=== PATIENT | male | born 1960 | race African-American/Black ===

== ENCOUNTER 2018-06-15 19:10 | Emergency (ER) | payer SELFPAY ==
[~2018-06-15] VITALS: Ht 182.9 cm; Wt 120.5 kg
[~2018-06-15 19:10] MED LIST: AMLO-512 PO; ASPI81TA42 PO; ATOR10TA84 PO; CARV6 PO; FURO-151 PO; LORA10TA7 PO; LOSA50TA25 PO; METF-960 PO; OMEP20CA10 PO
[2018-06-15] MEDS ORDERED: NITROGLYCERIN 2% (1 GM=INCH) PACKET TP ONE (20:00)
[2018-06-15] MEDS ORDERED: CloNIDine HCL 0.1 MG TABLET PO ONE (20:00)
[2018-06-15 20:07] LABS: APPEARANCE,URINE CLEAR (CLEAR); BILIRUBIN,URINE NEGATIVE (NEGATIVE); GLUCOSE, URINE (UA) NEGATIVE (NEGATIVE); KETONES,URINE NEGATIVE (NEGATIVE); LEUKOCYTE ESTERASE ,URINE NEGATIVE (NEGATIVE); NITRATE,URINE NEGATIVE (NEGATIVE); OCCULT BLOOD,URINE NEGATIVE (NEGATIVE); PROTEIN,URINE NEGATIVE (NEGATIVE); UROBILINOGEN,URINE 0.2 mg/dL (<=1.0)
[2018-06-15 20:11] LABS: AMPHET/METH SCREEN,URINE NEGATIVE (NEGATIVE); BARBITURATE SCREEN, URINE NEGATIVE (NEGATIVE); BENZODIAZEPINES SCREEN,URINE NEGATIVE (NEGATIVE); CANNABINOID SCREEN,URINE NEGATIVE (NEGATIVE); COCAINE SCREEN,URINE NEGATIVE (NEGATIVE); METHADONE SCREEN, URINE NEGATIVE (NEGATIVE); OPIATE SCREEN,URINE NEGATIVE (NEGATIVE)
[2018-06-15 20:13] LABS: PHENCYCLIDINE SCREEN,URINE NEGATIVE (NEGATIVE)
[2018-06-15 20:21] LABS: BASOPHILS % (AUTO) 1.3 % (0.0-2.0); EOSINOPHILS % (AUTO) 2.8 % (1.0-6.0); HEMATOCRIT 45.7 % (41-53); HEMOGLOBIN 15.9 g/dL (13.5-17.5); LYMPHOCYTES # (AUTO) 1.3 K/uL (1.0-4.8); LYMPHOCYTES % (AUTO) 32.6 % (22.0-44.0); MEAN CORPUSCULAR HGB CONC 34.7 G/dL (31.0-37.0); MEAN CORPUSCULAR VOLUME 89 fL (80-100); MONOCYTES # (AUTO) 0.2 K/uL (0.1-1.0); MONOCYTES % (AUTO) 6.3 % (2.0-9.0); NEUTROPHILS # (AUTO) 2.2 K/uL (1.8-7.7); PLATELET COUNT (AUTO) 214 K/uL (150-450); RED BLOOD CELL COUNT(AUTO) 5.12 MIL/uL (4.50-5.90)
[2018-06-15 20:26] LABS: ANION GAP 12 mmol/L (8-16); CALCIUM, TOTAL 9.1 mg/dL (8.8-10.5); CARBON DIOXIDE 25 mmol/L (22-29); CHLORIDE 101 mmol/L (98-107); CREATININE 1.07 mg/dL (0.60-1.30); GLOMERULAR FILTR. RATE CALC > 60 mL/min (>60); GLUCOSE,RANDOM 110 mg/dL (70-110); POTASSIUM 3.1 mmol/L (3.5-5.1); SODIUM SERUM 138 mmol/L (136-145); UREA NITROGEN, BLOOD 7 mg/dL (7-18)
[2018-06-15 20:32] LABS: PROTHROMBIN TIME 10.9 SEC (9.4-11.6)
[2018-06-15 20:39] LABS: B-TYPE NATRIURETIC PEPTIDE 210 pg/mL (0-100)
[2018-06-15 20:52] LABS: ALANINE AMINOTRANSFERASE 37 U/L (12-78); ALBUMIN 3.8 g/dL (3.4-5.0); ALKALINE PHOSPHATASE 83 U/L (46-116); ASPARTATE AMINOTRANSFERASE 21 U/L (15-37); BILIRUBIN,TOTAL 0.5 mg/dL (0.1-1.0); CREATINE KINASE MB 1.3 ng/mL (0-5); CREATINE KINASE, TOTAL 152 U/L (39-308)
[2018-06-15] MEDS ORDERED: AmLODIPine BESYLATE 5 MG TABLET PO ONE (21:15)
[2018-06-15] MEDS ORDERED: FUROSEMIDE 20 MG TABLET PO ONE (21:15)
[2018-06-15 22:23] VITALS: BP 169/91
== END 2018-06-15 22:27 | disposition home or self-care (01) ==
LOC: EMS 19:11
DX: F10.129 Alcohol abuse with intoxication, unspecified (principal); I11.0 Hypertensive heart disease with heart failure; I50.9 Heart failure, unspecified; K21.9 Gastro-esophageal reflux disease without esophagitis; E78.00 Pure hypercholesterolemia, unspecified; E11.9 Type 2 diabetes mellitus without complications; Y90.6 Blood alcohol level of 120-199 mg/100 ml; Z88.5 Allergy status to narcotic agent; Z88.6 Allergy status to analgesic agent; Z88.8 Allergy status to other drugs, medicaments and biological substances; Z79.82 Long term (current) use of aspirin; Z79.84 Long term (current) use of oral hypoglycemic drugs
CPT/HCPCS: 36415; 71045; 80053; 80307; 81003; 82550; 82553; 82948; 83880; 84484; 85025; 85610; 85730; 93005; 99285; G0480

== ENCOUNTER 2019-04-26 19:59 | Emergency (ER) | payer SELFPAY ==
[~2019-04-26] VITALS: Ht 180.3 cm; Wt 109.0 kg
[~2019-04-26 19:59] MED LIST changes: -AMLO-512 PO; +AMLO10TA7 PO; +ASPI81TA40 PO; -ASPI81TA42 PO; -LOSA50TA25 PO; +LOSA50TA64 PO; +OMEP-50 PO; -OMEP20CA10 PO
[2019-04-26 21:14] LABS: EOSINOPHILS % (AUTO) 2.4 % (1.0-6.0); HEMATOCRIT 42.3 % (41-53); HEMOGLOBIN 14.2 g/dL (13.5-17.5); LYMPHOCYTES # (AUTO) 1.6 K/uL (1.0-4.8); LYMPHOCYTES % (AUTO) 40.6 % (22.0-44.0); MEAN CORPUSCULAR HEMOGLOBIN 30.9 pg (26.0-34.0); MEAN CORPUSCULAR HGB CONC 33.7 G/dL (31.0-37.0); MEAN CORPUSCULAR VOLUME 92 fL (80-100); MONOCYTES # (AUTO) 0.3 K/uL (0.1-1.0); MONOCYTES % (AUTO) 6.8 % (2.0-9.0); NEUTROPHILS % (AUTO) 49.2 % (40.0-70.0); PLATELET COUNT (AUTO) 222 K/uL (150-450); RED BLOOD CELL COUNT(AUTO) 4.62 MIL/uL (4.50-5.90)
[2019-04-26 21:23] LABS: ANION GAP 12 mmol/L (8-16); CALCIUM, TOTAL 8.9 mg/dL (8.8-10.5); CARBON DIOXIDE 25 mmol/L (22-29); CHLORIDE 104 mmol/L (98-107); CREATININE 1.13 mg/dL (0.60-1.30); GLOMERULAR FILTR. RATE CALC > 60 mL/min (>60); GLUCOSE,RANDOM 87 mg/dL (70-110); POTASSIUM 3.3 mmol/L (3.5-5.1); SODIUM SERUM 141 mmol/L (136-145); UREA NITROGEN, BLOOD 9 mg/dL (7-18)
[2019-04-26 21:29] LABS: ALANINE AMINOTRANSFERASE 32 U/L (12-78); ALBUMIN 3.9 g/dL (3.4-5.0); ALKALINE PHOSPHATASE 77 U/L (46-116); ASPARTATE AMINOTRANSFERASE 21 U/L (15-37); BILIRUBIN,TOTAL 0.4 mg/dL (0.1-1.0); TOTAL PROTEIN, SERUM 7.9 g/dL (6.4-8.2)
[2019-04-26] MEDS ORDERED: AmLODIPine BESYLATE 5 MG TABLET PO ONE (21:30)
[2019-04-26 21:31] LABS: AMMONIA 25 umol/L (11-32); TROPONIN I < 0.02 ng/mL (0.00-0.05)
[2019-04-26 22:44] VITALS: BP 179/102
== END 2019-04-26 22:40 | disposition home or self-care (01) ==
LOC: EMS 20:02
DX: F10.129 Alcohol abuse with intoxication, unspecified (principal); E87.6 Hypokalemia; I11.0 Hypertensive heart disease with heart failure; I50.9 Heart failure, unspecified; E11.9 Type 2 diabetes mellitus without complications; E78.00 Pure hypercholesterolemia, unspecified; K21.9 Gastro-esophageal reflux disease without esophagitis; Z88.5 Allergy status to narcotic agent; Z88.6 Allergy status to analgesic agent; Z79.82 Long term (current) use of aspirin; Z79.84 Long term (current) use of oral hypoglycemic drugs; Z79.899 Other long term (current) drug therapy; Y90.7 Blood alcohol level of 200-239 mg/100 ml
CPT/HCPCS: 36415; 80053; 82140; 84484; 85025; 99283; G0480

== ENCOUNTER 2020-06-01 18:42 | Emergency (ER) | payer OTHER ==
[~2020-06-01] VITALS: Ht 182.9 cm; Wt 102.3 kg
[~2020-06-01 18:42] MED LIST changes: +AMLO-258 PO; -AMLO10TA7 PO; +LOSA50TA37 PO; -LOSA50TA64 PO; -OMEP-50 PO; +OMEP20CA12 PO
[2020-06-01 18:55] VITALS: BP 150/92
== END 2020-06-01 19:26 | disposition home or self-care (01) ==
LOC: EMS 18:42
DX: F10.129 Alcohol abuse with intoxication, unspecified (principal); E11.9 Type 2 diabetes mellitus without complications; E78.00 Pure hypercholesterolemia, unspecified; I11.0 Hypertensive heart disease with heart failure; I50.9 Heart failure, unspecified; Z79.84 Long term (current) use of oral hypoglycemic drugs; Z79.899 Other long term (current) drug therapy; Y90.9 Presence of alcohol in blood, level not specified

== ENCOUNTER 2024-05-13 11:06 | Emergency (ER) | payer MEDICARE, OTHER ==
[~2024-05-13] VITALS: Ht 180.3 cm; Wt 118.0 kg
[~2024-05-13 11:06] MED LIST changes: +ATOR10TA PO; -ATOR10TA84 PO; +LOSA-382 PO; -LOSA50TA37 PO; +METF-1211 PO; -METF-960 PO
[2024-05-13 11:17] VITALS: TEMP 97.9
[2024-05-13] MEDS: KETOROLAC TROMETHAMINE 30 MG/ML VIAL IM ONE (14:43)
[2024-05-13 15:37] VITALS: BP 153/77; PULSE 60; RESP 16
== END 2024-05-13 15:39 | disposition home or self-care (01) ==
LOC: EMS 11:06
DX: R22.42 Localized swelling, mass and lump, left lower limb (principal); K21.9 Gastro-esophageal reflux disease without esophagitis; I11.0 Hypertensive heart disease with heart failure; I50.9 Heart failure, unspecified; E11.9 Type 2 diabetes mellitus without complications; E78.5 Hyperlipidemia, unspecified; Z88.5 Allergy status to narcotic agent; Z88.6 Allergy status to analgesic agent; Z88.8 Allergy status to other drugs, medicaments and biological substances
CPT/HCPCS: 99283; 73630; 96372; J1885

== ENCOUNTER 2025-09-26 16:34 | Inpatient (IN) | payer MEDICARE, OTHER ==
[~2025-09-26] VITALS: Ht 180.3 cm; Wt 119.5 kg
[~2025-09-26 16:34] MED LIST changes: +CARV-165 PO; -CARV6 PO
[2025-09-26 17:28] LABS: APPEARANCE,URINE CLEAR (CLEAR); GLUCOSE, URINE (UA) NEGATIVE (NEGATIVE); LEUKOCYTE ESTERASE ,URINE NEGATIVE (NEGATIVE); NITRATE,URINE NEGATIVE (NEGATIVE); OCCULT BLOOD,URINE NEGATIVE (NEGATIVE); SPECIFIC GRAVITIY, URINE 1.005 (1.003-1.030)
[2025-09-26] MEDS: FUROSEMIDE 40 MG/4 ML VIAL IVP ONE (18:03)
[2025-09-26] MEDS: ASPIRIN 325 MG TABLET PO ONE (18:03)
[2025-09-26 18:16] LABS: PLATELET COUNT (AUTO) 313 K/uL (150-450); RED BLOOD CELL COUNT(AUTO) 4.28 MIL/uL (4.50-5.90); RED CELL DISTRIBUTION WIDTH 15.9 % (11.5-14.5); WHITE BLOOD COUNT (AUTO) 4.8 K/uL (4.5-11.0)
[2025-09-26 18:22] LABS: CALCIUM, TOTAL 8.9 mg/dL (8.8-10.5); CREATININE 0.96 mg/dL (0.60-1.30); GLOMERULAR FILTR. RATE CALC > 60 mL/min (>60); GLUCOSE,RANDOM 84 mg/dL (70-110); SODIUM SERUM 139 mmol/L (136-145); UREA NITROGEN, BLOOD 7 mg/dL (7-18)
[2025-09-26 18:34] LABS: ASPARTATE AMINOTRANSFERASE 20.0 U/L (15-37); TOTAL PROTEIN, SERUM 7.7 g/dL (6.4-8.2); TROPONIN I-HIGH SENSITIVITY 25 ng/L (<76)
[2025-09-26] MEDS: GABAPENTIN 300 MG CAPSULE PO ONE (19:15)
[2025-09-26] MEDS: MORPHINE SULFATE 4 MG/ML SYRINGE IVP ONE (19:15)
[2025-09-26] MEDS: ONDANSETRON HCL 4 MG/2 ML VIAL IVP ONE (19:15)
[2025-09-26] MEDS ORDERED: MAGNESIUM HYDROXIDE SUSPENSION 30 ML UDCUP PO PRN (19:30)
[2025-09-26] MEDS ORDERED: DEXTROSE 50%-WATER 25 GM/50 ML SYRINGE IVP PRN (19:30)
[2025-09-26] MEDS ORDERED: ONDANSETRON HCL 4 MG/2 ML VIAL IVP PRN (19:30)
[2025-09-26] MEDS ORDERED: ALBUTEROL SULFATE 2.5 MG/0.5 ML NEB SOLUTION NEB PRN (19:30)
[2025-09-26] MEDS ORDERED: ZOLPIDEM TARTRATE 5 MG TABLET PO PRN (19:30)
[2025-09-26] MEDS ORDERED: LORazepam 2 MG/ML VIAL IM PRN (19:45)
[2025-09-26] MEDS: DOCUSATE SODIUM 100 MG CAPSULE PO SCH (20:02)
[2025-09-26] MEDS: FUROSEMIDE 20 MG/2 ML VIAL IVP ONE (23:35)
[2025-09-26] MEDS: HEPARIN SODIUM,PORCINE 5,000 UNITS/ML VIAL SQ SCH (23:38)
[2025-09-27 01:15] VITALS: BP 148/89; PULSE 71; RESP 20; TEMP 98.1; O2SAT 100
[2025-09-27 05:37] VITALS: BP 132/81; PULSE 57; RESP 20; TEMP 98.6; O2SAT 100
[2025-09-27 08:00] VITALS: BP 154/90; PULSE 78; RESP 19; TEMP 98.1; O2SAT 98
[2025-09-27 08:07] LABS: PH,URINE DRUG SCREEN 5.0 (5.0-8.0)
[2025-09-27 08:13] LABS: AMPHET/METH SCREEN,URINE NEGATIVE (NEGATIVE); BARBITURATE SCREEN, URINE NEGATIVE (NEGATIVE); CANNABINOID SCREEN,URINE NEGATIVE (NEGATIVE); COCAINE SCREEN,URINE POSITIVE (NEGATIVE); METHADONE SCREEN, URINE NEGATIVE (NEGATIVE)
[2025-09-27 08:14] LABS: ALCOHOL, URINE DRUG SCREEN NEGATIVE (NEGATIVE)
[2025-09-27] MEDS: ACETAMINOPHEN 325 MG TABLET PO PRN (08:28)
[2025-09-27] MEDS: FAMOTIDINE 20 MG TABLET PO SCH (08:29)
[2025-09-27] MEDS: MULTIVITAMINS WITH MINERALS, THERAPEUTIC TABLET PO SCH (08:29)
[2025-09-27 11:00] VITALS: BP 142/79; PULSE 61; RESP 18; TEMP 98.1; O2SAT 98
[2025-09-27 15:00] VITALS: BP 148/94; PULSE 72; RESP 19; TEMP 98; O2SAT 96
[2025-09-27 17:01] LABS: PLATELET COUNT (AUTO) 294 K/uL (150-450); RED BLOOD CELL COUNT(AUTO) 4.13 MIL/uL (4.50-5.90); RED CELL DISTRIBUTION WIDTH 16.2 % (11.5-14.5); WHITE BLOOD COUNT (AUTO) 6.0 K/uL (4.5-11.0)
[2025-09-27] MEDS: INSULIN LISPRO 100 UNITS/ML SQ PRN (20:18)
[2025-09-27] MEDS: PANTOPRAZOLE SODIUM 40 MG DR TABLET PO SCH (20:21)
[2025-09-27 20:47] LABS: GLUCOMETER DEV NAME(LOC) 5S.2E; GLUCOSE,POINT OF CARE 102 MG/DL (70-110)
[2025-09-27 20:47] LABS: GLUCOMETER DEV NAME(LOC) 5S.2E; GLUCOSE,POINT OF CARE 150 MG/DL (70-110)
[2025-09-27 20:51] VITALS: BP 128/77; PULSE 74; RESP 18; TEMP 98.7; O2SAT 96
[2025-09-28 00:51] VITALS: BP 126/63; PULSE 60; RESP 18; TEMP 98.6; O2SAT 98
[2025-09-28 05:17] VITALS: BP 119/67; PULSE 61; RESP 18; TEMP 98.6; O2SAT 98
[2025-09-28 06:11] LABS: GLUCOMETER DEV NAME(LOC) 5S.2E; GLUCOSE,POINT OF CARE 116 MG/DL (70-110)
[2025-09-28 07:00] LABS: PLATELET COUNT (AUTO) 282 K/uL (150-450); RED BLOOD CELL COUNT(AUTO) 3.71 MIL/uL (4.50-5.90); RED CELL DISTRIBUTION WIDTH 16.4 % (11.5-14.5); WHITE BLOOD COUNT (AUTO) 4.5 K/uL (4.5-11.0)
[2025-09-28] MEDS: ASPIRIN 81 MG CHEWABLE TABLET PO SCH (08:32)
[2025-09-28] MEDS: ATORVASTATIN CALCIUM 20 MG TABLET PO SCH (08:32)
[2025-09-28 08:44] VITALS: BP 149/86; PULSE 65; RESP 18; TEMP 98.2; O2SAT 98
[2025-09-28 12:01] VITALS: BP 141/85; PULSE 56; RESP 17; TEMP 97.5; O2SAT 97
[2025-09-28] MEDS ORDERED: AMLO-258 PO (13:31)
[2025-09-28 15:51] LABS: GLUCOMETER DEV NAME(LOC) 5N.1D; GLUCOSE,POINT OF CARE 103 MG/DL (70-110)
[2025-09-28 20:35] LABS: GLUCOMETER DEV NAME(LOC) 5S.2E; GLUCOSE,POINT OF CARE 124 MG/DL (70-110)
== END 2025-09-28 14:57 | disposition home or self-care (01) | DRG 305 ==
LOC: EMS 16:34 → EDH 19:26 → EDBD 19:26 → 5S 09-27 01:23
PROVIDERS: ADMIT Internal Medicine; ATTEND Internal Medicine
PROC: 5A09357 Assistance with Respiratory Ventilation, Less than 24 Consecutive Hours, Continuous Positive Airway Pressure (ICD-10-PCS; principal; 2025-09-27)
DX: I16.0 Hypertensive urgency (principal); I69.354 Hemiplegia and hemiparesis following cerebral infarction affecting left non-dominant side; I50.9 Heart failure, unspecified; E11.9 Type 2 diabetes mellitus without complications; E66.01 Morbid (severe) obesity due to excess calories; F10.129 Alcohol abuse with intoxication, unspecified; I11.0 Hypertensive heart disease with heart failure; K21.9 Gastro-esophageal reflux disease without esophagitis; F14.90 Cocaine use, unspecified, uncomplicated; E78.00 Pure hypercholesterolemia, unspecified; Z68.36 Body mass index [BMI] 36.0-36.9, adult; Z82.49 Family history of ischemic heart disease and other diseases of the circulatory system; Z88.5 Allergy status to narcotic agent; Z88.6 Allergy status to analgesic agent; Z91.199 Patient's noncompliance with other medical treatment and regimen due to unspecified reason
CPT/HCPCS: 71045; 80048; 80076; 80307; 81003; 82962; 83880; 84484; 85025; 93005; 93306; 93971; 97116; 97163; 97530; 99291; G0378; G0480; J0360; J1644; J1938; J2270; J2405; 36415-L1; 36415-TC